=== PATIENT | female | born 1990 | race Caucasian/White ===

== ENCOUNTER → 2018-03-01 | Outpatient (CLI) | payer OTHER ==
[~2018-03-01] MED LIST: BIRTH CONTROL PO; CYCL10 PO; HYDACE5 PO; NAPR500 PO; Naprosyn500 MG PO; PENVK500 PO; PROACE50 PO
== END | disposition home or self-care (01) ==
LOC: LAB SHORT 11:26 → LAB 11:26
PROVIDERS: Obstetrics & Gynecology
DX: Z01.419 Encounter for gynecological examination (general) (routine) without abnormal findings (principal)
CPT/HCPCS: 87624; G0123